=== PATIENT | female | born 1930 | race Caucasian/White ===

== ENCOUNTER → 2016-07-23 | Outpatient (CLI) | payer MEDICARE ==
[~2016-07-23] MED LIST: ACET-1697 PO; ALPR.25T PO; AMLO2.5T2 PO; AMLO5TAB2 PO; ASPI-933 PO; ATRV10T PO; BISO1TAB39 PO; CALC-656 PO; CLN.1TRX PO; CLN.2T PO; CLON-378 PO; DXZS2T PO; HCT25T PO; INDA1.25 PO; KCL10CCR PO; LISI-597 PO; LORA0.5T PO; LORA10TA7 PO; LORA1TAB PO; METH4TAB PO; METO-272 PO; METO-274 PO; METO50TA7 PO; MTP100TCR PO; MTP25TSR PO; MULT1CAP27 PO; OMG1KC PO
[2016-07-23 12:35] LABS: BILIRUBIN,URINE NEGATIVE (NEGATIVE); KETONES,URINE NEGATIVE (NEGATIVE); LEUKOCYTE ESTERASE ,URINE NEGATIVE (NEGATIVE); NITRITE,URINE NEGATIVE (NEGATIVE); PH,URINE 6 (5-9); PROTEIN,URINE NEGATIVE (NEGATIVE); UROBILINOGEN,URINE NORMAL (NORMAL)
--- NOTE | 2016-07-23 13:05 | Diagnostic Imaging Report ---
INDICATION: Low back pain. Single supine view of the abdomen is obtained. There is no previous study for comparison. FINDINGS: There is moderate amount of stool throughout the colon. Calcification left upper quadrant may represent splenic artery aneurysm. There is diffuse lumbar spondylosis most pronounced at L4-L5 and L5-S1. No definite pathologic calcification is seen in the abdomen. There is no free intraperitoneal gas or pneumatosis. IMPRESSION: No acute abnormality is identified. There may be constipation. Dictated by: Dictated on workstation # [id number]
--- OUTSIDE RECORDS SUMMARY | 2016-07-23 15:57 | XMS REPORT | Continuity of Care Document ---
Author Author [facility] Organization [facility] Address Unknown Phone Unavailable Care Team Providers Care Medical Scientific Liaison Name Role Phone RAIN FAY MD PCP Insurance Providers Payer Name Policy Number Subscriber Name Relationship Wps Medicare [id number] Kahlil Zamora L 18 Self / Same As Patient Blue [employer] Mc[employer] Supp [id number] Kahlil Zamora 18 Self / Same As Patient Advance Directives Directive Response Recorded Date/Time Advance Directives No 01/30/14 9:56pm Organ Donor No 01/30/14 9:56pm Resuscitation Status Full Code 01/30/14 9:56pm Resuscitation Status Full Code 01/30/14 10:19pm Chief Complaint and Reason for Visit Chief Complaint HYPERTENSIVE CRISIS/CHEST PAIN Reason for Visit Hypertensive crisis Problems Medical Problems Problem Onset Date Status Hypertensive crisis Unknown Active Medications Medication Dose Route Sig Days/Qty Instructions Order Date Discontinued Date Status Bisoprolol Fumarate/HCTZ 1 Tab PO DAILY 10/17/10 01/17/11 Discontinued Aspirin 81 Mg PO BEDTIME 10/17/10 Active Atorvastatin Calcium 10 Mg PO BEDTIME 10/17/10 Active Fish Oil 1,000 Mg PO BEDTIME 10/17/10 Active Calcium Carbonate/Vitamin D3 1 Each PO DAILY 10/17/10 Active Metoprolol Succinate 50 Mg PO DAILY 01/17/11 01/22/12 Discontinued Multivitamins 1 Cap PO BEDTIME 01/17/11 Active Alprazolam 1 Tab PO QID PRN 01/17/11 01/20/12 Discontinued Clonidine Hcl 0.1 Mg PO TWICE A DAY 10 Qty FOR BLOOD PRESSURE 01/17/11 01/30/14 Discontinued Hydrochlorothiazide 25 Mg PO DAILY 01/20/12 01/22/12 Discontinued Potassium Chloride 10 Meq PO 01/20/12 01/22/12 Discontinued Lisinopril 40 Mg PO DAILY 01/22/12 Active Metoprolol Succinate 50 Mg PO TWICE A DAY 01/22/12 01/31/14 Discontinued Lorazepam 1 Each PO TWICE A DAY 10 Qty 04/06/12 01/30/14 Discontinued Clonidine Hcl 0.2 Mg PO TWICE A DAY 01/30/14 02/01/14 Discontinued Lorazepam 0.5 Mg PO TWICE A DAY 01/30/14 Active Loratadine 10 Mg PO DAILY 01/30/14 Active Amlodipine Besylate 5 Mg PO DAILY PRN BP >180 01/30/14 Active Metoprolol Succinate (Toprol Xl) 50 Mg PO TWICE A DAY 01/31/14 Active Clonidine HCl 1 Each PO THREE TIMES A DAY 90 Qty 02/01/14 Active Social History Social History Problem Response Recorded Date/Time Alcohol Use Denies Use 01/30/2014 9:55pm Recreational Drug Use No 01/30/2014 9:55pm Smoking Status Never a Smoker 01/30/2014 10:00pm Query Response Start Date Stop Date Smoking Status Never a Smoker Hospital Discharge Instructions No hospital discharge instructions. Plan of Care Discharge Date 02/01/14 2:00pm Disposition 01 HOME, SELF-CARE Instructions/Education Provided Chronic Hypertension (DC) Prescriptions See Medications Section Referrals Irvin (Unspecified) 2 Weeks Deyvi (Unspecified) 4 Weeks Care Plan and Goals appointment with Dr. FAY in [address] Dubon in 2 weeks Functional Status Query Response Date Recorded Patient Orientation Person Place Time Situation February 01, 2014 3:54pm Comprehension Ability Understands Concepts February 01, 2014 8:00am Allergies, Adverse Reactions, Alerts Allergen Type Severity Reaction Status Last Updated No Known Drug Allergies Active 10/17/10 Immunizations Name Given Type Date of Pneumonia Vaccine 02/23/11 Historical Date of Influenza Vaccine 02/24/12 Historical Vital Signs Acute Vital Signs Vital Response Date/Time Temperature (Fahrenheit) 97.1 degrees F (97.6 - 99.5) Temperature (Calculated Celsius) 36.43079 degrees C (36.4 - 37.5) Temperature Source Tympanic Pulse Rate (adult) 65 bpm (60 - 90) Respiratory Rate 18 bpm (12 - 24) O2 Sat by Pulse Oximetry 97 % (88 - 100) Blood Pressure 136/81 mm Hg Pain Pain Intensity 0 Height (Feet) 5 feet Height (Inches) 0.00 inches Height (Calculated Centimeters) 152.894436 cm Weight (Pounds) 127 pounds Weight (Ounces) 3.0 oz Weight (Calculated Grams) 43813.280 gm Weight (Calculated Kilograms) 57.519159 kilograms Calculated BMI 24.41 Results Test Source Date Result Interp. Ref. Range Comments Activated Partial Thromboplast Time January 21, 2012 3:25am 27 SEC N 24- 35 Alanine Aminotransferase (ALT/SGPT) January 21, 2012 3:25am 56 U/L N 30- 65 Albumin January 21, 2012 3:25am 3.9 G/DL N 3.4-5.0 Alkaline Phosphatase January 21, 2012 3:25am 103 U/L N 50-136 Aspartate Amino Transf (AST/SGOT) January 21, 2012 3:25am 28 U/L N 15-37 BUN/Creatinine Ratio January 22, 2012 5:48am 20 - Basophils # (Auto) January 21, 2012 3:25am 0.0 10^3/uL N 0.0-0.1 Basophils (%) (Auto) January 21, 2012 3:25am 0 % N 0-10 Blood Urea Nitrogen January 22, 2012 5:48am 16 MG/DL N 7-18 Calcium Level January 22, 2012 5:48am 8.6 MG/DL N 8.5-10.1 Carbon Dioxide Level January 22, 2012 5:48am 28 MMOL/L N 21-32 Chloride Level January 22, 2012 5:48am 103 MMOL/L N 101-110 Cholesterol Level January 22, 2012 5:48am 165 MG/DL N -200 Creatine Kinase MB January 21, 2012 3:25am 2.6 NG/ML N 0.0-3.6 Creatinine January 22, 2012 5:48am 0.8 MG/DL N 0.6-1.3 Eosinophils # (Auto) January 21, 2012 3:25am 0.2 10^3/uL N 0.0-0.3 Eosinophils (%) (Auto) January 21, 2012 3:25am 2 % N 0-10 Glucose Level January 22, 2012 5:48am 104 MG/DL N 74-106 HDL Cholesterol January 22, 2012 5:48am 42 MG/DL N 35-60 Hematocrit January 22, 2012 5:18am 39 % N 35-52 Hemoglobin January 22, 2012 5:18am 14.2 G/DL N 11.5-16.0 LDL Cholesterol January 22, 2012 5:48am 86 MG/DL N 0-129 Lymphocytes # (Auto) January 21, 2012 3:25am 2.0 X 10^3 N 1.0-4.0 Lymphocytes (%) (Auto) January 21, 2012 3:25am 29 % N 12-44 Magnesium Level January 21, 2012 3:25am 1.9 MG/DL N 1.8-2.4 Mean Corpuscular Hemoglobin January 22, 2012 5:18am 31 PG N 25-34 Mean Corpuscular Hemoglobin Concent January 22, 2012 5:18am 37 G/DL H 32- 36 Mean Corpuscular Volume January 22, 2012 5:18am 86 FL N 80-99 Mean Platelet Volume January 22, 2012 5:18am 10.7 FL H 7.4-10.4 Monocytes # (Auto) January 21, 2012 3:25am 0.8 X 10^3 N 0.0-1.0 Monocytes (%) (Auto) January 21, 2012 3:25am 11 % N 0-12 Myoglobin January 21, 2012 3:25am 51 UG/L N 10-92 Neutrophils # (Auto) January 21, 2012 3:25am 3.9 X 10^3 N 1.8-7.8 Neutrophils (%) (Auto) January 21, 2012 3:25am 57 % N 42-75 Platelet Count January 22, 2012 5:18am 195 10^3/uL N 130-400 Potassium Level January 22, 2012 5:48am 4.1 MMOL/L N 3.6-5.0 Prothromb Time International Ratio January 21, 2012 3:25am 1.0 N 0.8-1.4 INTERPRETIVE DATASUGGESTED THERAPEUTIC RANGE FOR INR'S: VENOUS THROMBOSIS, PULMONARY EMBOLISM, OR PREVENTION OF SYSTEMIC EMBOLISM (EG. IN ATRIAL FIBRILLATION): 2.0 - 3.0 MECHANICAL PROSTHETIC HEART VALVES: 2.5 - 3.5* *NOTE: INR'S UP TO 4.5 MAY BE NECESSARY IN SELECTED GROUPS OF HIGH RISK PATIENTS. [employer] CONSENSUS CONFERENCE ON ANTITHROMBOTIC THERAPY (2000). Prothrombin Time January 21, 2012 3:25am 13.1 SEC N 12.2-14.7 Red Blood Count January 22, 2012 5:18am 4.52 10^6/uL N 4.35-5.85 Red Cell Distribution Width January 22, 2012 5:18am 12.4 % N 10.0-14.5 Sodium Level January 22, 2012 5:48am 138 MMOL/L N 135-145 Total Bilirubin January 21, 2012 3:25am 0.5 MG/DL N 0.0-1.0 Total Protein January 21, 2012 3:25am 7.6 G/DL N 6.4-8.2 Triglycerides Level January 22, 2012 5:48am 187 MG/DL H 30.0-150.0 Troponin I January 21, 2012 2:35pm 0.24 MG/ML H 0.00-0.10 VLDL Cholesterol January 22, 2012 5:48am 37 MG/DL N 5-40 White Blood Count January 22, 2012 5:18am 6.4 10^3/uL N 4.3-11.0 Glucometer January 22, 2012 6:05am 105 MG/DL N 70-110 Lab Scanned Report January 21, 2012 4:20am LAB Reports [id number] - Estimat Glomerular Filtration Rate January 21, 2012 3:25am > 60 - GFR INTERPRETIVE DATA UNITS FOR ESTIMATED GFR (eGFR): mL/min/1.73 M2 REFERENCE RANGE FOR ESTIMATED GFR (eGFR) eGFR NORMAL eGFR >60 MODERATELY DECREASED eGFR 30-59 SEVERLY DECREASED eGFR 15-29 KIDNEY FAILURE <15 (OR DIALYSIS) Creatine Kinase January 21, 2012 2:35pm 114 U/L N 1-159 Cardiac Panel Pathologist Review January 21, 2012 3:25am SEE CARDIAC PATH REV - MRSA Screen Nasal January 21, 2012 6:30am MRSA not isolated Procedures Procedure Status Date Provider(s) Tracing only of electrocardiogram completed 01/30/14 JACQUELINE ORTIZ MD Tracing only of electrocardiogram completed 01/30/14 NEERU DUBON MD Encounters Encounter Location Date/Time Discharged Inpatient [facility] 01/30/14 8:40pm Registered Clinic [facility] 01/06/14 7:15am Recent Diagnosis Hypertensive crisis
== END ==
LOC: LAB 12:17
PROVIDERS: ATTEND Nurse Practitioner Family
DX: R35.0 Frequency of micturition (principal); M54.5 Low back pain
CPT/HCPCS: 74000; 81000

== ENCOUNTER → 2016-08-15 | Outpatient (CLI) | payer MEDICARE ==
--- NOTE | 2016-08-15 12:46 | Diagnostic Imaging Report ---
PROCEDURE: US abdomen complete. TECHNIQUE: Multiple real-time grayscale images were obtained over the abdomen in various projections. INDICATION: Question of splenic artery aneurysm based on abdominal radiograph. FINDINGS: The pancreas appears unremarkable. The liver demonstrates no focal mass. There is hepatopetal flow in the portal vein. The visualized portions of the abdominal aorta demonstrate normal caliber with mild atherosclerotic plaque. The visualized portions of the IVC demonstrate normal color flow. The right kidney is 9.0 cm in length, and the left kidney is 8.3 cm. No hydronephrosis or focal lesion. The spleen is 10.4 cm in length, not enlarged. There is a 1.3 x 3.1 x 1.6-cm vascular lesion near the splenic hilum that is probably a splenic artery aneurysm. The gallbladder demonstrates no stones or wall thickening. CBD is 6 mm in caliber. No fluid collection or free fluid is seen. IMPRESSION: Suggestion of a splenic artery aneurysm. CT angiogram evaluation is recommended. Dictated by: Dictated on workstation # [id number]
== END ==
LOC: RAD 07:44
PROVIDERS: ATTEND Nurse Practitioner Family
DX: R93.3 Abnormal findings on diagnostic imaging of other parts of digestive tract (principal)
CPT/HCPCS: 76700

== ENCOUNTER → 2016-08-23 | Outpatient (CLI) | payer MEDICARE ==
[~2016-08-23] MED LIST changes: +CATHETER FLUSH 10 ML SYR IV PRN; +IOHEXOL 350 MG/ML 100 ML (OMNIPAQUE 350) VIAL IV ONE; +NS 100 ML (IVPB) BAG IV ONE
--- NOTE | 2016-08-23 14:13 | Diagnostic Imaging Report ---
PROCEDURE: CT chest, abdomen, and pelvis with and without contrast. TECHNIQUE: Precontrast images were obtained of the chest, abdomen, and pelvis. Multiple contiguous axial images were obtained through the chest, abdomen, and pelvis after administration of intravenous contrast. INDICATION: Question of splenic artery aneurysm. CT chest: FINDINGS: There is pleural thickening noted posteriorly on both chest angulo with a somewhat nodular appearance. There are no parenchymal lung lesions. There is no calcification of the pleural thickening. The aorta and pulmonary arteries are well opacified. No evidence of aortic aneurysm. Mild atherosclerotic changes noted. Pulmonary arteries appear normal. No mediastinal or hilar adenopathy of pathologic size. No axillary adenopathy. No bony lesion. IMPRESSION: Pleural thickening noted posteriorly along both chest angulo. 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 This is densely calcified and measures approximately 1.8 cm in diameter. This is in the splenic hilum. There is no evidence of contrast extravasation to suggest aneurysm leak. The celiac and superior mesenteric artery are widely patent with mild atherosclerotic changes. The renal arteries show some calcification at the origin on the right though no hemodynamic stenosis is felt to be present. The aorta is atherosclerotic without aneurysm. Iliac arteries appear normal. Fatty changes are noted of the liver. Gallbladder is not distended. The bile ducts appear normal. The adrenal glands and kidneys are normal. There is normal enhancement of the kidneys following IV contrast. Delayed images show normal-appearing renal collecting system. Bladder is opacified and appears normal. Stomach is not distended. Small bowel appears normal. The colon shows normal stool and gas pattern. There are multiple diverticula in the sigmoid colon with no evidence of diverticulitis. There are no pelvic masses. The uterus is not enlarged. Bladder appears normal. No adenopathy of pathologic size is demonstrated. Intra-abdominal wall appears normal without hernia. There is no free air or free fluid. IMPRESSION: 1. 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 This is densely calcified and appears to be long-standing. 2. Scattered atherosclerotic changes noted throughout the aorta and abdominal vessels without hemodynamic stenosis or aneurysm. 3. No acute intra-abdominal findings. Dictated by: Dictated on workstation # [id number]
== END ==
LOC: RAD 12:21
PROVIDERS: ATTEND Nurse Practitioner Family
DX: I72.8 Aneurysm of other specified arteries (principal); I70.0 Atherosclerosis of aorta; I70.8 Atherosclerosis of other arteries
CPT/HCPCS: 71270; 74178

== ENCOUNTER 2016-09-13 20:10 | Emergency (ER) | payer MEDICARE ==
[~2016-09-13] VITALS: Ht 152.4 cm; Wt 59.4 kg
[~2016-09-13 20:10] MED LIST changes: -AMLO2.5T2 PO; -CATHETER FLUSH 10 ML SYR IV PRN; -IOHEXOL 350 MG/ML 100 ML (OMNIPAQUE 350) VIAL IV ONE; -METH4TAB PO; -METO-274 PO; -NS 100 ML (IVPB) BAG IV ONE
[2016-09-13] MEDS ORDERED: cloNIDine 0.2 MG (CATAPRES) TAB ONE (20:21)
--- NOTE | 2016-09-13 20:23 | ED Cough/URI ---
General Chief Complaint: Coughing up blood Stated Complaint: COUGHING UP BLOOD Source: patient, RN notes reviewed Exam Limitations: no limitations History of Present Illness Time seen by provider: 20:25 Initial Comments As above and below. Has been battling a sinus infection and has completed 2 courses of antibiotics including Keflex and a Z-sky. Lorena ROSALIA noted blood in her sputum. Timing/Duration: this evening Severity/Quality: productive cough, blood streaked sputum Prior Episodes/Possible Cause: no prior episodes Modifying Factors: Improves With Coughing Associated Symptoms: cough, nasal congestion, sinus infection Allergies and Home Medications Allergies Coded Allergies: No Known Drug Allergies (Unverified , 09/13/16) Home Medications Acetaminophen 500 Mg Tablet, 1,000 MG PO Q6H PRN for MILD PAIN, (Reported) Amlodipine Besylate 2.5 Mg Tablet, 2.5 MG PO DAILY, #30 Ref 2 Prescribed by: BRITNEY QUIROGA on 09/13/162 Aspirin 81 Mg Tablet.dr, 81 MG PO HS, (Reported) Atorvastatin Calcium 10 Mg Tablet, 10 MG PO HS, (Reported) Calcium Carbonate/Vitamin D3 1 Each Tablet, 1 EACH PO DAILY, (Reported) Doxazosin Mesylate 2 Mg Tab, 2 MG PO HS, #30 Ref 11 Prescribed by: JUANITA PEÑA on 11/26/14 1150 Indapamide 1.25 Mg Tablet, 1.25 MG PO DAILY, #30 Ref 11 Prescribed by: JUANITA PEÑA on 11/26/14 1150 Lorazepam 0.5 Mg Tablet, 0.5 MG PO BID, (Reported) Methylprednisolone 4 Mg Tab.ds.pk, 4 MG PO UD, #1 Ref 0 Prescribed by: BRITNEY QUIROGA on 09/13/16 2212 Metoprolol Succinate 50 Mg Tab.sr.24h, 50 MG PO BID, (Reported) Metoprolol Succinate 100 Mg Tab.er.24h, 100 MG PO DAILY, #60 (Reported) Multivitamins 1 Each Capsule, 1 CAP PO HS, (Reported) Constitutional: see HPI EENTM: nose congestion Respiratory: see HPI, cough, hemoptysis : No All Other Systems Reviewed Negative Unless Noted: Yes (Negative excepted noted.) Past Rmxxkla-Czhxsr-[id number] Hx Patient Social History Alcohol Use: Denies Use Recreational Drug Use: No Smoking Status: Former Smoker Recent Foreign Travel: No Contact w/Someone Who Travel: No Immunizations Up To Date Tetanus Booster (TDap): Unknown Date of Pneumonia Vaccine: Feb 23, 2011 Date of Influenza Vaccine: Feb 23, 2014 Surgeries HX Surgeries: Yes (BILAT TRIGGER THUMB; CATARACT SURGERY, HOOK SX( CALCIFICATION IN BREAST )) Respiratory Hx Respiratory Disorders: No Cardiovascular Hx Cardiac Disorders: Yes Cardiac Disorders: Hypertension Neurological Hx Neurological Disorders: No Reproductive System Hx Reproductive Disorders: No Genitourinary Hx Genitourinary Disorders: Yes Genitourinary Disorders: UTI-Chronic Gastrointestinal Hx Gastrointestinal Disorders: Yes (inguinal HERNIA) Musculoskeletal Hx Musculoskeletal Disorders: No Endocrine Hx Endocrine Disorders: No HEENT HX ENT Disorders: No Cancer Hx Cancer: No Psychosocial Hx Psychiatric Problems: Yes Behavioral Health Disorders: Anxiety Integumentary HX Skin/Integumentary Disorder: No Blood Transfusions Hx Blood Disorders: No Family Medical History Family Medial History: Arthritis G8 SISTER, , Onset:Unknown Diabetes mellitus G8 SISTER G8 SISTER FH: ovarian cancer 19 MOTHER, Onset:Unknown G8 SISTER, , Onset:Unknown FH: stroke 19 FATHER, Onset:Unknown Hypertension G8 SISTER, , Onset:Unknown Physical Exam Vital Signs Vital Sign - Last 12Hours 09/13/16 20:18 Temp 98.6 Pulse 80 Resp 18 B/P (MAP) 224/169 Pulse Ox 100 O2 Delivery Room Air Capillary Refill : General Appearance: WD/WN, no apparent distress HEENT: TMs normal, pharynx normal, other ((+) tenderness over both of her maxillary sinuses) Neck: normal inspection Respiratory: lungs clear, no respiratory distress Cardiovascular: regular rate, rhythm Neurologic/Psychiatric: no motor/sensory deficits, alert, normal mood/affect Skin: warm/dry Lymphatic: no adenopathy Progress/Results/Core Measures Results/Orders Lab Results Laboratory Tests Test 09/13/16 20:25 Range/Units White Blood Count 8.3 4.3-11.0 10^3/uL Red Blood Count 4.59 4.35-5.85 10^6/uL Hemoglobin 14.1 11.5-16.0 G/DL Hematocrit 39 35-52 % Mean Corpuscular Volume 86 80-99 FL Mean Corpuscular Hemoglobin 31 25-34 PG Mean Corpuscular Hemoglobin Concent 36 32-36 G/DL Red Cell Distribution Width 12.6 10.0-14.5 % Platelet Count 233 130-400 10^3/uL Mean Platelet Volume 10.2 7.4-10.4 FL Neutrophils (%) (Auto) 62 42-75 % Lymphocytes (%) (Auto) 25 12-44 % Monocytes (%) (Auto) 11 0-12 % Eosinophils (%) (Auto) 2 0-10 % Basophils (%) (Auto) 0 0-10 % Neutrophils # (Auto) 5.2 1.8-7.8 X 10^3 Lymphocytes # (Auto) 2.1 1.0-4.0 X 10^3 Monocytes # (Auto) 0.9 0.0-1.0 X 10^3 Eosinophils # (Auto) 0.2 0.0-0.3 10^3/uL Basophils # (Auto) 0.0 0.0-0.1 10^3/uL Prothrombin Time 13.1 12.2-14.7 SEC INR Comment 1.0 0.8-1.4 Activated Partial Thromboplast Time 26 24-35 SEC Sodium Level 137 135-145 MMOL/L Potassium Level 4.5 3.6-5.0 MMOL/L Chloride Level 105 98-107 MMOL/L Carbon Dioxide Level 21 21-32 MMOL/L Anion Gap 11 5-14 MMOL/L Blood Urea Nitrogen 24 H 7-18 MG/DL Creatinine 0.81 0.60-1.30 MG/DL Estimat Glomerular Filtration Rate > 60 BUN/Creatinine Ratio 30 Glucose Level 125 H 70-105 MG/DL Calcium Level 9.1 8.5-10.1 MG/DL Magnesium Level 2.4 1.8-2.4 MG/DL Total Bilirubin 0.4 0.1-1.0 MG/DL Aspartate Amino Transf (AST/SGOT) 45 H 5-34 U/L Alanine Aminotransferase (ALT/SGPT) 45 0-55 U/L Alkaline Phosphatase 90 40-136 U/L B-Type Natriuretic Peptide 45.3 <100.0 PG/ML Total Protein 7.4 6.4-8.2 G/DL Albumin 4.2 3.2-4.5 G/DL My Orders Orders - BRITNEY QUIROGA DO Clonidine Tablet (Catapres Tablet) (09/13/16 20:30) Saline Lock/Iv-Start (09/13/16 20:24) BNP (09/13/16 20:24) Cbc With Automated Diff (09/13/16 20:24) Comprehensive Metabolic Panel (09/13/16 20:24) Magnesium (09/13/16 20:24) Protime With Inr (09/13/16 20:24) Partial Thromboplastin Time (09/13/16 20:24) Chest 1 View, Ap/Pa Only (09/13/16 20:24) Clonidine Tablet (Catapres Tablet) (09/13/16 20:21) Ct Chest Wo (09/13/16 21:04) Ct Sinus Complete Wo (09/13/16 21:04) Amlodipine Tablet (Norvasc Tablet) (09/13/16 21:15) Dexamethasone Pf Injection (Decadron Pf (09/13/16 22:15) Medications Given in ED Current Medications Medications Dose Ordered Sig/Shukri Route Start Time Stop Time Status Last Admin Dose Admin Amlodipine Besylate 5 mg ONCE ONCE PO 09/13/16 21:15 09/13/16 21:16 DC 09/13/16 21:18 5 MG Clonidine HCl 0.2 mg STK-MED ONCE .ROUTE 09/13/16 20:21 09/13/16 20:25 DC 09/13/16 20:26 0.2 MG Dexamethasone Sodium Phosphate 10 mg ONCE ONCE IM 09/13/16 22:15 09/13/16 22:17 DC 09/13/16 22:22 10 MG Vital Signs/I&O Vital Sign - Last 12Hours 09/13/16 09/13/16 09/13/16 20:18 20:18 22:13 Temp 98.6 Pulse 80 54 Resp 18 15 B/P (MAP) 224/169 Pulse Ox 100 98 O2 Delivery Room Air Progress Note : Progress Note Discussed following and documenting her BP daily. Recommend checking it no more than twice daily. Diagnostic Imaging Diagonstic Imaging: Xray, CT Plain Films/CT/US/NM/MRI: chest (nothing acute per radiologist), other ( sinus revealed findings c/w maxillary sinusitis) Departure Impression Impression: Primary Impression: Cough with hemoptysis Additional Impressions: Sinusitis, acute maxillary Asymptomatic hypertensive urgency Disposition: 01 HOME, SELF-CARE Condition: Stable Departure-Patient Inst. Decision time for Depature: 22:09 Referrals: BRENT HUGHES MD (PCP/Family) Primary Care Physician Patient Instructions: Sinusitis, Adult (DC) Scripts Methylprednisolone (Medrol) 4 Mg Tab.ds.pk 4 MG PO UD for sinus, #1 PKG 0 Refills Prov: BRITNEY QUIROGA DO 09/13/16 Amlodipine Besylate (Norvasc) 2.5 Mg Tablet 2.5 MG PO DAILY for HTN, #30 TAB 2 Refills Prov: BRITNEY QUIROGA DO 09/13/16 BRITNEY QUIROGA DO Sep 13, 2016 20:23
[2016-09-13] MEDS ORDERED: METO-274 PO (20:29)
[2016-09-13] MEDS ORDERED: cloNIDine 0.2 MG (CATAPRES) TAB PO ONE (20:30)
[2016-09-13 20:41] LABS: BASOPHILS % (AUTO) 0 % (0-10); EOSINOPHILS # (AUTO) 0.2 10^3/uL (0.0-0.3); EOSINOPHILS % (AUTO) 2 % (0-10); LYMPHOCYTES # (AUTO) 2.1 X 10^3 (1.0-4.0); LYMPHOCYTES % (AUTO) 25 % (12-44); MEAN CORPUSCULAR HEMOGLOBIN 31 PG (25-34); MEAN CORPUSCULAR HGB CONC 36 G/DL (32-36); MEAN CORPUSCULAR VOLUME 86 FL (80-99); MEAN PLATELET VOLUME 10.2 FL (7.4-10.4); MONOCYTES # (AUTO) 0.9 X 10^3 (0.0-1.0); MONOCYTES % (AUTO) 11 % (0-12); NEUTROPHILS # (AUTO) 5.2 X 10^3 (1.8-7.8); NEUTROPHILS % (AUTO) 62 % (42-75); PLATELET COUNT 233 10^3/uL (130-400); RED BLOOD COUNT 4.59 10^6/uL (4.35-5.85); RED CELL DISTRIBUTION WIDTH 12.6 % (10.0-14.5); WHITE BLOOD COUNT 8.3 10^3/uL (4.3-11.0)
[2016-09-13 20:45] LABS: PROTHROMBIN TIME PATIENT 13.1 SEC (12.2-14.7)
[2016-09-13 20:53] LABS: ALANINE AMINOTRANSFERASE 45 U/L (0-55); ALBUMIN 4.2 G/DL (3.2-4.5); ANION GAP 11 MMOL/L (5-14); ASPARTATE AMINO TRANSFERASE 45 U/L (5-34); BILIRUBIN,TOTAL 0.4 MG/DL (0.1-1.0); BLOOD UREA NITROGEN 24 MG/DL (7-18); BUN/CREATININE RATIO 30; CALCIUM 9.1 MG/DL (8.5-10.1); CARBON DIOXIDE 21 MMOL/L (21-32); CHLORIDE 105 MMOL/L (98-107); CREATININE SERUM 0.81 MG/DL (0.60-1.30); GFR ESTIMATED > 60; GLUCOSE 125 MG/DL (70-105); MAGNESIUM 2.4 MG/DL (1.8-2.4); POTASSIUM 4.5 MMOL/L (3.6-5.0); SODIUM 137 MMOL/L (135-145); TOTAL PROTEIN 7.4 G/DL (6.4-8.2)
--- NOTE | 2016-09-13 20:57 | Diagnostic Imaging Report ---
INDICATION: Hemoptysis. EXAMINATION: Upright portable chest was obtained. FINDINGS: Mild cardiomegaly with normal vascularity. The lungs are clear. There is no effusion or pneumothorax. IMPRESSION: Mild cardiomegaly. No acute abnormality is seen with no change from 11/25/14. If hemoptysis persists, bronchoscopy or CT of the chest may be helpful for further evaluation of this. Dictated by: Dictated on workstation # [id number]
[2016-09-13] MEDS ORDERED: amLODIPine 5 MG (NORVASC) TAB PO ONE (21:15)
--- NOTE | 2016-09-13 21:42 | Diagnostic Imaging Report ---
PROCEDURE: CT sinuses without contrast TECHNIQUE: Multiple contiguous axial images were obtained through the sinuses without the use of intravenous contrast. Coronal and sagittal reformations were then performed. INDICATION: Coughing up blood. Sinus problems. There is fluid layering in the dependent portion of both maxillary sinuses. There is mild mucous membrane thickening of the ethmoid sinuses. No significant abnormality of the sphenoid sinus is seen. The frontal sinuses are not pneumatized. There is no mass seen. There is no bone expansion or bone destruction. No intraorbital abnormality is seen. IMPRESSION: There is fluid layering in the dependent portion of both maxillary sinuses with mild mucous membrane thickening of ethmoid sinuses. Dictated by: Dictated on workstation # [id number]
--- NOTE | 2016-09-13 21:43 | Diagnostic Imaging Report ---
PROCEDURE: CT chest without contrast. TECHNIQUE: Multiple contiguous axial images were obtained through the chest without the use of intravenous contrast. INDICATION: Coughing up blood There is a 4 mm calcified nodule in the right upper lobe. There is a 3 x 4 mm noncalcified nodule in the right lower lobe. No suspicious mass or infiltrate is seen. There is left basilar discoid atelectasis. There is no effusion or pneumothorax. There is no mediastinal mass or hemorrhage. No hiatal hernia is evident. There are no bony destructive lesions. IMPRESSION: No cause for the hemoptysis is seen. There is a 3 x 4 mm noncalcified nodule in the right lower lobe which is probably related to granulomatous disease but could be followed for stability with CT in 12 months. This was present on prior CT from 08/23/16. Dictated by: Dictated on workstation # [id number]
[2016-09-13] MEDS ORDERED: METH4TAB PO (22:12)
[2016-09-13] MEDS ORDERED: AMLO2.5T2 PO (22:12)
[2016-09-13 22:13] VITALS: BP 152/81
[2016-09-13] MEDS ORDERED: DEXAMETHASONE PF 10 MG/ML (DECADRON) VIAL IM ONE (22:15)
== END 2016-09-13 22:25 | disposition home or self-care (01) ==
LOC: EDUNIT# 20:10 → ER 20:12
DX: R04.2 Hemoptysis (principal); J01.00 Acute maxillary sinusitis, unspecified; I16.0 Hypertensive urgency; Z79.82 Long term (current) use of aspirin; Z79.899 Other long term (current) drug therapy
CPT/HCPCS: 36415; 70486; 71010; 71250; 80053; 83735; 83880; 85025; 85610; 85730; 96372